=== PATIENT | male | born 1980 | race Two or more races ===

== ENCOUNTER 2024-11-26 13:41 | Emergency (ER) | payer OTHER, SELFPAY ==
[2024-11-26 13:42] VITALS: BMI 44.4
[2024-11-26 13:50] VITALS: BP 155/105; PULSE 96; RESP 20; TEMP 37.3; O2SAT 96
--- NOTE | 2024-11-26 14:04 | XR_ITS ---
Examination: CT abdomen and pelvis without contrast. Coronal 3-D reconstructions. Sagittal 2-D reconstructions. Date and time of exam:November 26, 2024, 1706 hours. INDICATIONS: Onset left-sided flank pain today. CTDI: vol (mGy): 18.4. DLP: (mGycm): 1292. Technique: Axial images of the abdomen have been obtained, 3 mm slice thickness Intravenous contrast material has not been administered. Low dose protocols were performed. One or more of the following dose reduction techniques were used; automated exposure control, adjustment of the mA and/or KV according to patient size, use of iterative reconstruction technique. Findings: No focal liver or splenic lesions. Contracted gallbladder. No pancreatic or adrenal mass. No renal or ureteral calculi, no hydronephrosis. Aorta normal size 10 mm fat-containing umbilical hernia. No pericecal inflammatory change No bowel obstruction No diverticulitis. Normal seminal vesicles Normal prostate Normal urinary bladder Mild osteopenia. IMPRESSION: No renal or ureteral calculi, no hydronephrosis Mild bilateral renal parenchymal scar formation. No CT findings of appendicitis bowel obstruction or diverticulitis
--- NOTE | 2024-11-26 14:05 | PD.EDRME ---
Rapid Medical Screening Exam RME Arrival date/time: 11/26/24 13:41 44-year-old male presents to the emergency department today for complaint of abdominal pain Chief Complaint: Abdominal Pain Time Seen by Provider: 11/26/24 18:04 Vital signs: Vital Signs Temperature 99.1 F 11/26/24 13:50 Pulse Rate 96 11/26/24 13:50 Respiratory Rate 20 11/26/24 13:50 Blood Pressure 155/105 H 11/26/24 13:50 Pulse Oximetry (%) 96 11/26/24 13:50 Oxygen Delivery Method Room Air 11/26/24 13:50
[2024-11-26] MEDS: KETOROLAC INJ 60 MG/2 ML VIAL 30 MG IM (14:57)
[2024-11-26] MEDS: ONDANSETRON ODT 4 MG TABRAP PO (14:57)
[2024-11-26 15:05] LABS: Basophils # (Auto) 0.1 Thou/mm3 (0.0-0.2); Basophils % (Auto) 1 % (0-2.5); Eosinophils # (Auto) 0.4 Thou/mm3 (0.0-0.5); Eosinophils % (Auto) 4 % (0-10); Hematocrit 45.3 % (41.0-53.0); Hemoglobin 14.6 g/dL (13.5-16.0); Immature Granulocytes Auto 0.04 Thou/mm3 (0.00-0.00); Lymphocytes # (Auto) 2.7 Thou/mm3 (1.0-4.8); Lymphocytes % (Auto) 24 % (10-50); Mean Corpuscular HGB Conc 32.2 g/dl (31.0-37.0); Mean Corpuscular Hemoglobin 28.0 pg (25.0-35.0); Mean Corpuscular Volume 87 fL (80-100); Monocytes # (Auto) 0.8 Thou/mm3 (0.0-0.8); Monocytes % (Auto) 7 % (0-12); Neutrophils # (Auto) 7.0 Thou/mm3 (1.8-7.7); Neutrophils % (Auto) 64 % (37-80); Nucleated Red Blood Cell # 0.00 Thou/mm3 (0.00-0.00); Nucleated Red Blood Cell % 0 /100 WBC (0); Platelet Count 245 Thou/mm3 (140-440); RDW Standard Deviation 45.1 fL (35.1-43.9); Red Blood Count 5.22 Miln/mm3 (4.50-5.90); White Blood Count 11.0 Thou/mm3 (3.8-10.6)
[2024-11-26 15:11] LABS: Glucose Estimated Average 131 mg/dL (80-131); Hemoglobin A1C 6.2 % Hgb (4.8-6.0)
[2024-11-26 15:31] LABS: Alanine Aminotransferase 38 U/L (10-49); Albumin, Serum 4.2 gm/dL (3.5-5.0); Albumin/Globulin Ratio 1.5 (1.2-2.2); Alkaline Phosphatase 133 U/L (46-116); Anion Gap 9 (7-16); Aspartate Amino Transferase 29 U/L (0-34); BUN/Creatinine Ratio 10 Ratio (12-20); Bilirubin,Total 0.4 mg/dL (0.3-1.2); Blood Urea Nitrogen 9 mg/dL (9-23); Calcium 10.0 mg/dL (8.3-10.6); Calcium (Corrected) 10.0 mg/dL (8.5-10.1); Carbon Dioxide 28.5 mMol/L (20.0-31.0); Chloride 103 mMol/L (98-107); Creatinine (Component) 0.9 mg/dL (0.6-1.3); Estimated Creatinine Clearance 148.2 mL/min (>60); Globulin 2.8 gm/dL (2.3-3.5); Glucose 132 mg/dL (74-106); Lipase 81 U/L (12-53); Osmolality,Calculated 280 (275-295); Potassium 4.4 mMol/L (3.4-5.1); Sodium 140 mMol/L (136-145); Total Protein 7.0 gm/dL (5.7-8.2); eGFR > 60 See Note
[2024-11-26 17:04] LABS: Collection Type, Urine Clean Catch; Squamous Epithelial Cell,Urine 0 /hpf (0-5)
[2024-11-26 17:07] LABS: Bilirubin,Urine Negative (Negative); Blood,Urine 2+ (Negative); Clarity,Urine Clear (Clear/Hazy); Color,Urine Lt-Yellow (Lt Yel-Yel); Culture Indicated,Urine Not Indicated; Glucose, Urine Negative (Negative); Ketones,Urine Negative (Negative); Leukocyte Esterase,Urine Negative (Negative); Nitrite,Urine Negative (Negative); PH,Urine 7.0 (5.0-7.0); Protein,Urine Negative (Neg - Trace); RBC,Urine 19 /hpf (0-3); Specific Gravity,Urine 1.015 (1.001-1.035); Urobilinogen,Urine Negative mg/dL (0.0-1.0); WBC,Urine 1 /hpf (0-5)
--- NOTE | 2024-11-26 18:26 | EDNOTE_ITS ---
ED Back Injury Pain RME/HPI General Chief Complaint: Abdominal Pain Stated Complaint: LEFT FLANK PAIN Time Seen by Provider: 11/26/24 18:04 Arrival date/time: 11/26/24 13:41 RME / HPI RME / HPI Narrative: 11/26/24 13:41 44-year-old male presents to the emergency department today for complaint of abdominal pain See [facility] for Dr. Carrasco's HPI Documentation. Related Data Previous Rx's ?Medication ?Instructions ?Recorded acetaminophen 300 mg-codeine 30 mg 2 tab PO Q8H PRN pa in #20 tabs 11/26/24 tablet cyclobenzaprine 10 mg tablet 10 mg PO Q8H PRN muscle s pasm #30 11/26/24 tabs ibuprofen 800 mg tablet 800 mg PO Q8H PRN pain #30 t abs 11/26/24 Allergies Allergy/AdvReac Type Severity Reaction Status Date / Time No Known Allergies Allergy Verified 11/26/24 13:44 Review of Systems Review of Systems Systems Reviewed: All systems reviewed, normal except as documented Past Medical History Social History SMOKING STATUS: Current some day smoker ED Exam Narrative Physical exam: See [facility] for Dr. Carrasco's Physical Exam Documentation. Course Quality Measures none Orders Category Date Time Status CT abdomen pelvis wo con Stat Exams 11/26/24 14:04 Completed A1C [Glycohemoglobin w (eAG)] Stat Lab 11/26/24 14:52 Completed CBC Stat Lab 11/26/24 14:52 Completed Comprehensive Metabolic Panel Stat Lab 11/26/24 14:52 Completed Lipase Stat Lab 11/26/24 14:52 Completed UA, C/S IF [Urinalysis, C/S if Indicated] Stat Lab 11/26/24 16:36 Completed Ketorolac Inj [Toradol Inj] Med 11/26/24 14:05 Discontinued 30 mg IM X1 ONE Ondansetron Odt [Zofran Odt] Med 11/26/24 14:05 Discontinued 4 mg PO X1 ONE Vital Signs Vital signs: Vital Signs Temperature 99.1 F 11/26/24 13:50 Pulse Rate 96 11/26/24 13:50 Respiratory Rate 20 11/26/24 13:50 Blood Pressure 155/105 H 11/26/24 13:50 Pulse Oximetry (%) 96 11/26/24 13:50 Oxygen Delivery Method Room Air 11/26/24 13:50 Back Pain / Injury MDM Narrative MDM Narrative:: Scribe Attestation: I, Torie Seymour, am scribing for and in the presence of Dr. Carrasco. This section includes all my notes and documentations, including HPI, PE, and ED course. Eric Carrasco MD HPI: 44 y/o male with several days of pain in the left flank area. Has trouble localizing further. Has trouble describing the quality and quantity of the pain. Seems to be associated with certain movements and positions. No fever. No vomiting. Eating normally. No urinary symptoms. No other complaints. ROS: All negative except as documented in HPI. Physical Exam: General: Alert and oriented. No acute distress when remaining still. Eyes: Conjunctivae and lids clear. ENT: No nasal congestion. Neck: Supple. Heart: RRR. Lungs: No respiratory distress. Good air movement. No rhonchi, wheezing, rales. Abdomen: Soft and nontender. Normal bowel sounds. No distension. No rebound or guarding. Back: No CVA tenderness. Skin: Warm and dry. Neuro: Alert and oriented X 3. I reviewed all diagnostic test results: My review of the CT report is NAD. Blood tests and urine tests unremarkable. At this point, diagnoses include: Musculoskeletal pain Recommended more outpatient workup. Based on my best medical judgment, made decision no further evaluation or treatment indicated at this time. Patient understands and agrees to the discharge instructions customized and printed, see below. Discharge instructions from Dr. Carrasco: 1. After extensive evaluation, exact cause of your left flank pain was not determined. 2. But there is no very serious condition. Such as appendicitis or kidney stone or kidney infection needing urgent treatment and intervention. 3. Ibuprofen and Tylenol with Codeine and Cyclobenzaprine as needed. 4. See a private doctor on 11/30/24 for recheck. If you are not better, you may need more care and investigation not available here in the ER. 5. See immediate medical care with worsening or with any concerns. Eric Carrasco MD Patient data External records reviewed:: [facility] previous records (No prior ED records available for review.) Clinical information provided by:: patient Social determinants that could affect healthcare access:: none Patient has the following chronic illnesses:: None reported How is presenting disease/condition affected by chronic disease/condition?: no chronic disease Evaluation data The following diagnostics were reviewed and interpreted by me:: lab results and radiology exam(s) Lab and/or radiology exams considered but not ordered:: None Interpretation Summary: I reviewed all diagnostic test results: My review of the CT report is NAD. Blood tests and urine tests unremarkable. Medications / Prescriptions Medications or Prescriptions considered but not ordered:: None Medication administrations:: Medication Administration History Discontinued Medications Ketorolac Tromethamine (Ketorolac Inj 60 Mg/2 Ml Vial) 30 mg IM X1 ONE Stop: 11/26/24 14:06 Last Admin: 11/26/24 14:57 Dose: 30 mg Documented By: YASSINE Ondansetron HCl (Ondansetron Odt 4 Mg Tabrap) 4 mg PO X1 ONE; Protocol Stop: 11/26/24 14:06 Last Admin: 11/26/24 14:57 Dose: 4 mg Documented By: YASSINE Toradol 30 mg, Zofran 4 mg Consultations Consultation(s) initiated? (list below): No Diagnosis Differential diagnosis back pain/injury: lumbar radiculopathy, sciatica, strain of lumbar region, renal colic, pyelonephritis and other (Renal Calculi, Cystitis, Musculoskeletal pain) Most likely diagnosis given after review of the tests above:: Left flank pain, musculoskeletal Admission Indicated Admission indicated?: not indicated Explain why admission is indicated or not indicated:: With no condition needing emergent intervention, there was no indication for admission. Admission Request Was there a request for admission?: No Disposition Plan Disposition Plan: Discharge Discharge Attestation Discharge Attestation: The patient and all family members were given an opportunity to ask questions and understood the discharge instructions. Discharge instructions specifically effects, indications for sooner follow up or return to the emergency department, and the expected course of current diagnosis. Patient condition: Stable Discharge Plan Plan Patient Disposition: HOME (Self Care) Prescriptions/Referrals Prescriptions/Med Rec: New cyclobenzaprine 10 mg tablet 10 mg PO Q8H PRN (Reason: muscle spasm) Qty: 30 0RF ibuprofen 800 mg tablet 800 mg PO Q8H PRN (Reason: pain) Qty: 30 0RF acetaminophen-codeine 300-30 mg tablet 2 tab PO Q8H MDD 6 PRN (Reason: pain) Qty: 20 0RF Referrals: No Primary/Family,Physician [Primary Care Provider] - In 1 week Problem List Clinical Impression: Left flank pain Patient/Caregiver Discharge Instructions Discharge Activity: activity as tolerated Education Materials: ED Flank Pain, Uncertain Cause Additional Instructions: Discharge instructions from Dr. Carrasco: 1. After extensive evaluation, exact cause of your left flank pain was not determined. 2. But there is no very serious condition. Such as appendicitis or kidney stone or kidney infection needing urgent treatment and intervention. 3. Ibuprofen and Tylenol with Codeine and Cyclobenzaprine as needed. 4. See a private doctor on 11/30/24 for recheck. If you are not better, you may need more care and investigation not available here in the ER. 5. See immediate medical care with worsening or with any concerns. Print Language: Ecuadorean Stand Alone Forms: [employer] Award Info., Patient Portal Info Letter
== END 2024-11-26 18:37 | disposition home or self-care (01) ==
PROVIDERS: Nurse Practitioner Primary Care; Emergency Provider Emergency Medicine
DX: R10.9 Unspecified abdominal pain (principal); F17.200 Nicotine dependence, unspecified, uncomplicated
CPT/HCPCS: 36415; 74176; 80053; 81001; 83036; 83690; 85025; 99283; J1885; Q0162